=== PATIENT | male | born 1965 | race Caucasian/White ===

== ENCOUNTER 2021-05-21 10:08 | Emergency (ER) | payer OTHER ==
[~2021-05-21] VITALS: Ht 165.1 cm; Wt 88.0 kg
[2021-05-21 10:14] VITALS: BP 161/72
--- NOTE | 2021-05-21 10:31 | PHYS DOC ---
Past History Past Surgical History: Hip Replacement, Other Additional Past Surgical Histo: bilateral shoulder surgeries Alcohol Use: Rarely General Adult EDM: Chief Complaint: BLOOD IN URINE HPI: HPI: 55-year-old male presents with concern for urinary tract infection. He has had increased urinary frequency and hematuria. He has had this symptoms for about a week. He tells me he thinks his urinary tract infection has moved into his left hip. He is having left hip pain with ambulation. He has a hip replacement. He has not measured a fever at home. Denies falls or trauma. Review of Systems: Review of Systems: Constitutional: Denies fever or chills Eyes: Denies change in visual acuity HENT: Denies nasal congestion or sore throat Respiratory: Denies cough or shortness of breath Cardiovascular: Denies chest pain or edema GI: Denies abdominal pain, nausea, vomiting, bloody stools or diarrhea : Increased urinary frequency, hematuria Musculoskeletal: Left hip pain Integument: Denies rash Neurologic: Denies headache, focal weakness or sensory changes Endocrine: Denies polyuria or polydipsia Lymphatic: Denies swollen glands Psychiatric: Denies depression or anxiety Allergies: Allergies: Allergies Coded Allergies Type Severity Reaction Last Updated Verified Penicillins Allergy Unknown Hives 05/21/21 Yes Physical Exam: PE: Constitutional: Well developed, well nourished, obese, no acute distress, non- toxic appearance. [] HENT: Normocephalic, atraumatic, bilateral external ears normal, oropharynx moist, no oral exudates, nose normal. [] Eyes: PERRLA, EOMI, conjunctiva normal, no discharge. [] Neck: Normal range of motion, no tenderness, supple, no stridor. [] Cardiovascular: Heart rate regular rhythm, no murmur [] Lungs & Thorax: Bilateral breath sounds clear to auscultation [] Abdomen: Bowel sounds normal, soft, no tenderness, no masses, no pulsatile masses. [] Skin: Warm, dry, no erythema, no rash. [] Back: No tenderness, no CVA tenderness. [] Extremities: Mild tenderness of the left lateral hip. [] Neurologic: Alert and oriented X 3, normal motor function, normal sensory func tion, no focal deficits noted. [] Psychologic: Affect normal, judgement normal, mood normal. [] Current Patient Data: Vital Signs: Vital Signs Date Time Temp Pulse Resp B/P (MAP) Pulse Ox O2 Delivery O2 Flow Rate FiO2 05/21/21 10:14 98.4 85 18 161/72 (101) 96 EKG: EKG: [] Radiology/Procedures: Radiology/Procedures: [] Impressions: EXAM: AP pelvis, AP and lateral views of the left hip DATE: 05/21/2021 10:38 AM INDICATION: Reason: pain, hx replacement / Spl. Instructions: / History: . COMPARISON: No Prior FINDINGS/ IMPRESSION: Changes of left total hip arthroplasty, in good alignment without definite beata dware complication or fracture. Moderate joint degenerative changes are seen. Electronically signed by: Oswaldo Palencia MD (05/21/2021 11:34 AM) [id number] DICTATED AND SIGNED BY: OSWALDO PALENCIA MD DATE: 05/21/21 1134 CC: ESTRELLA VELASCO DO; LUKAS GUZMAN MD ~MTH0 0 Heart Score: C/O Chest Pain: N/A Risk Factors: Risk Factors: DM, Current or recent (<one month) smoker, HTN, HLP, family history of CAD, obesity. Risk Scores: Score 0 - 3: 2.5% MACE over next 6 weeks - Discharge Home Score 4 - 6: 20.3% MACE over next 6 weeks - Admit for Clinical Observation Score 7 - 10: 72.7% MACE over next 6 weeks - Early Invasive Strategies Course & Med Decision Making: Course & Med Decision Making Pertinent Labs and Imaging studies reviewed. (See chart for details) The patient's urinalysis shows that he spilling a lot of glucose, he has white blood cells, but 0 bacteria. His hip x-ray is negative for acute findings. He does have degenerative changes. I have made him aware of these and advised that he follow-up with orthopedics. The patient is stable for discharge at this time. [] Dragon Disclaimer: Dragon Disclaimer: This electronic medical record was generated, in whole or in part, using a voice recognition dictation system. Departure Departure: Impression: Primary Impression: Hematuria Qualified Codes: R31.29 - Other microscopic hematuria Additional Impression: Left hip pain Disposition: HOME / SELF CARE / HOMELESS Condition: STABLE Referrals: LUKAS GUZMAN MD (PCP) Patient Instructions: Hematuria-Brief, Hip Pain ESTRELLA VELASCO DO May 21, 2021 10:31
--- NOTE | 2021-05-21 11:36 | RAD ---
EXAM: AP pelvis, AP and lateral views of the left hip DATE: 05/21/2021 10:38 AM INDICATION: Reason: pain, hx replacement / Spl. Instructions: / History: . COMPARISON: No Prior FINDINGS/ IMPRESSION: Changes of left total hip arthroplasty, in good alignment without definite hardware complication or f racture. Moderate joint degenerative changes are seen. Electronically signed by: Oswaldo Palencia MD (05/21/2021 11:34 AM) [id number]
[2021-05-21 12:17] LABS: BILIRUBIN,URINE NEG (NEG); CLARITY,URINE CLEAR; COLOR,URINE YELLOW; GLUCOSE,URINE >=1000 mg/dL (NEG)
[2021-05-21 12:18] LABS: BACTERIA,URINE 0 /HPF (0-FEW); NITRITE,URINE NEG (NEG); UROBILINOGEN,URINE 0.2 mg/dL (0.2 mg/dL); WBC,URINE 20-40 /HPF (0-4)
== END 2021-05-21 13:31 | disposition home or self-care (01) ==
LOC: ER 10:08
DX: R31.29 Other microscopic hematuria (principal); M25.552 Pain in left hip; R35.0 Frequency of micturition; Z88.0 Allergy status to penicillin
CPT/HCPCS: 73502; 81001; 87077; 87086; 87185; 87186; 99284

== ENCOUNTER 2021-05-23 13:45 | Emergency (ER) | payer OTHER ==
[~2021-05-23] VITALS: Ht 165.1 cm; Wt 88.0 kg
[2021-05-23] MEDS ORDERED: CYCLOBENZAPRINE 10 MG TABLET. PO ONE (14:00)
[2021-05-23] MEDS ORDERED: NAPROXEN 500 MG TABLET PO ONE (14:00)
[2021-05-23] MEDS ORDERED: oxyCODONE/APAP 5/325 1 TAB TABLET PO ONE (14:00)
[2021-05-23] MEDS ORDERED: HYDR-2155 PO (14:13)
[2021-05-23] MEDS ORDERED: CYCL10TA19 PO (14:13)
--- NOTE | 2021-05-23 14:14 | PHYS DOC ---
Past History Past Surgical History: Hip Replacement, Other Additional Past Surgical Histo: bilateral shoulder surgeries (RIKKI MALAGON APRN) Alcohol Use: Rarely (RIKKI MALAGON APRN) Adult General Chief Complaint Chief Complaint: HIP PAIN HPI HPI Patient is a 55-year-old male patient who presents to the ED today complaining of moderate intermittent left hip pain and left low back pain, symptoms have been going on for 1 week. Patient denies any trauma. Denies any loss of bowel/bladder function. He states he has previous history of left replacement. He states he was seen in the ED on Thursday and had negative x-rays. He states he is supposed to follow-up with his orthopedic doctor on Thursday next week. He states the gabapentin he has its not helping. (RIKKI MALAGON APRN) Review of Systems Review of Systems Constitutional: Denies fever or chills [] GI: Denies abdominal pain, nausea, vomiting, bloody stools or diarrhea [] : Denies dysuria or hematuria [] Musculoskeletal: Reports left hip and left low back pain Integument: Denies rash or skin lesions [] Neurologic: Denies headache, focal weakness or sensory changes [] All other systems were reviewed and found to be within normal limits, except as documented in this note. (RIKKI MALAGON APRN) Current Medications Current Medications Current Medications Medications (Trade) Dose Ordered Sig/Sania Start Time Stop Time Status Last Admin Dose Admin Cyclobenzaprine HCl (Flexeril) 10 mg 1X ONCE 05/23/21 14:00 05/23/21 14:01 DC Naproxen (Naprosyn) 500 mg 1X ONCE 05/23/21 14:00 05/23/21 14:01 DC Oxycodone/ Acetaminophen (Percocet 5/325) 1 tab 1X ONCE 05/23/21 14:00 05/23/21 14:01 DC (RIKKI MALAGON APRN) Allergies Allergies Allergies Coded Allergies Type Severity Reaction Last Updated Verified Penicillins Allergy Unknown Hives 05/21/21 Yes (RIKKI MALAGON APRN) Physical Exam Physical Exam Constitutional: Well developed, well nourished, no acute distress, non-toxic appearance. [] Abdomen: Rounded obese abdomen bowel sounds normal, soft, no tenderness, no masses, no pulsatile masses. [] Skin: Warm, dry, no erythema, no rash. [] Back: No tenderness, no CVA tenderness. [] Extremities: Tenderness on palpation of the left lateral hip, no cyanosis, no clubbing, ROM intact, no edema. [] Neurologic: Alert and oriented X 3, normal motor function, normal sensory function, no focal deficits noted. [] Psychologic: Affect normal, judgement normal, mood normal. [] (RIKKI MALAGON APRN) EKG EKG [] (RIKKI MALAGON APRN) Radiology/Procedures Radiology/Procedures [] (RIKKI MALAGON APRN) Heart Score C/O Chest Pain: N/A Risk Factors: Risk Factors: DM, Current or recent (<one month) smoker, HTN, HLP, family history of CAD, obesity. Risk Scores: Risk Factors: DM, Current or recent (<one month) smoker, HTN, HLP, family history of CAD, obesity. (RIKKI MALAGON APRN) Course & Med Decision Making Course & Med Decision Making Pertinent Labs and Imaging studies reviewed. (See chart for details) This is a 55-year-old male patient presenting to the ED today with left hip and low back pain for 1 week. Patient reports being seen in the ED on Thursday of this week for the same complaint, he states the pain if not improving. No trauma. No cauda equina syndrome symptoms. He has an appointment with his orthopedic doctor next week. He was encouraged to follow-up with his orthopedic doctor. (RIKKI MALAGON APRN) Dragon Disclaimer Dragon Disclaimer This electronic medical record was generated, in whole or in part, using a voice recognition dictation system. (RIKKI MALAGON APRN) Attending Co-Sign The patient was seen and interviewed as well as examined at the bedside. The chart was reviewed. The case was discussed. Agree with the plan of care. (ESTRELLA VELASCO DO) Departure Departure: Impression: Primary Impression: Hip pain, chronic Additional Impression: Low back pain Disposition: HOME / SELF CARE / HOMELESS Condition: STABLE Referrals: LUKAS GUZMAN MD (PCP) Follow-up with your orthopedic doctor and primary care doctor next week Patient Instructions: Back Pain, Adult, Hip Pain Additional Instructions: You were evaluated in the emergency room for low back pain and hip pain. Take the prescribed medications as ordered. Follow up with the Orthopedic doctor as Scheduled. Scripts Cyclobenzaprine Hcl (CYCLOBENZAPRINE HCL) 10 Mg Tablet 1 TAB PO TID, #30 TAB Prov: RIKKI MALAGON ANITA 05/23/21 Hydrocodone Bit/Acetaminophen (HYDROCODONE-APAP 5-325 ) 1 Each Tablet 1 TAB PO PRN Q6HRS PRN for PAIN, #10 TAB 0 Refills Prov: RIKKI MALAGON Kike HOWARD 05/23/21 Problem Qualifiers Primary Impression: Hip pain, chronic Laterality: left Qualified Codes: M25.552 - Pain in left hip; G89.29 - Other chronic pain Additional Impression: Low back pain Chronicity: acute Back pain laterality: left Sciatica presence: without sciatica Qualified Codes: M54.50 - Low back pain, unspecified RIKKI MALAGON Kike HOWARD May 23, 2021 14:14 ESTRELLA VELASCO DO May 23, 2021 17:57
[2021-05-23 14:37] VITALS: BP 128/64
== END 2021-05-23 14:38 | disposition home or self-care (01) ==
LOC: ER 13:45
DX: M54.50 Low back pain, unspecified (principal); M25.552 Pain in left hip; Z88.0 Allergy status to penicillin
CPT/HCPCS: 99284-25